=== PATIENT | male | born 1955 | race American Indian/Alaskan Native ===

== ENCOUNTER 2017-02-27 00:14 | Emergency (ER) | payer BC ==
--- NOTE | 2017-02-27 00:38 | Emergency Department Report ---
HPI - General Time Seen by Provider: 02/27/17 00:34 - HPI HPI: Room 19 The patient is a 62-year-old male presenting with a chief complaint cardiac arrest. Per EMS the patient's last normal time was 1 hour prior to EMS arrival. EMS states they arrived on scene at 23:40 upon the patient unresponsive and asystolic. ACLS protocols were initiated and EMS was unable to intubate the patient. Patient was subsequently bagged and had an oral airway established. Upon arrival to the ED the patient was a very difficult intubation and required a kaleidoscope to visualize the cords. Patient was initially intubated with an 8.02 and ACLS protocols continued Location: Cardiovascular system Duration: [see above] Quality: asystole Severity: Severe Modifying factors: [see above] Context: [see above] Mode of transportation: EMS ED Past Medical Hx - Past Medical History Hx Hypertension: Yes Hx Heart Attack/AMI: Yes (1994) Hx of Cancer: Yes (prostate CA) - Surgical History Additional Surgical History: angioplasty - Family History Family history: no significant - Social History Smoking Status: Unknown if ever smoked - Medications Home Medications: Home Medications Medication Instructions Recorded Confirmed Last Taken Type Atorvastatin (Nf) [Lipitor (Nf)] 20 mg PO QDAY 02/14/14 04/01/15 04/01/15 History Clopidogrel [Plavix] 75 mg PO QDAY 02/14/14 04/01/15 03/26/15 History Losartan/Hydrochlorothiazide 1 each PO DAILY 02/14/14 04/01/15 04/01/15 History [Hyzaar 100-25 Tablet] Metoprolol [Lopressor] 100 mg PO DAILY 02/14/14 04/01/15 04/01/15 History Pantoprazole [Protonix] 20 mg PO BID #60 tablet. 02/14/14 04/01/15 Unknown Rx Potassium Chloride [K-Dur] 10 meq PO QDAY 02/14/14 04/01/15 04/01/15 History Spironolactone [Aldactone] 12.5 mg PO QDAY #30 tablet 02/14/14 03/31/15 Unknown Rx amLODIPine [Norvasc] 10 mg PO DAILY 02/14/14 04/01/15 04/01/15 History Aspirin [Aspirin BABY CHEW TAB] PO 04/01/15 04/01/15 04/01/15 History Cholecalciferol (Vitamin D3) 3,000 unit PO DAILY 04/01/15 04/01/15 03/28/15 History [Vitamin D3] Ubidecarenone/Vitamin E [Q-Up 04/01/15 04/01/15 03/28/15 History Liquid] ED Review of Systems ROS: Stated complaint: CARDIAC ARREST Other details as noted in HPI Comment: Unobtainable due to pts medical conditions Physical Exam - Physical Exam Physical Exam: GENERAL: The patient is well-developed well-nourished male lying on stretcher with oral airway in place receiving chest compressions. [] HEENT: Normocephalic. Atraumatic. NECK: Trachea midline CHEST/LUNGS: No spontaneous respirations HEART/CARDIOVASCULAR: No heart sounds. Asystole on monitor ABDOMEN: Abdomen is soft, nontender. Patient has normal bowel sounds. There is no abdominal distention. SKIN: There is no rash. There is no edema. There is no diaphoresis. NEURO: GCS 3 MUSCULOSKELETAL: There is no evidence of acute injury. ED Medical Decision Making - Differential Diagnosis cardiac arrest, PE, ICH, ACS Critical care attestation.: If time is entered above; I have spent that time in minutes in the direct care of this critically ill patient, excluding procedure time. ED Disposition Clinical Impression: Cardiac arrest Disposition: MEDICAL FACILITY Is pt being admited?: No Does the pt Need Aspirin: No Condition: Poor Referrals: PRIMARY CARE, [Primary Care Provider] - 3-5 Days Time of Disposition: 00:34 (patient )
[2017-02-27] MEDS ORDERED: ADRENALIN ONE (14:40)
== END 2017-02-27 05:10 ==
LOC: ED 00:14
DX: I46.9 Cardiac arrest, cause unspecified (principal); I10 Essential (primary) hypertension; I25.2 Old myocardial infarction; C61 Malignant neoplasm of prostate; Z79.82 Long term (current) use of aspirin; Z79.02 Long term (current) use of antithrombotics/antiplatelets; Z95.1 Presence of aortocoronary bypass graft
CPT/HCPCS: 31500; 99285; J0171